=== PATIENT | male | born 1995 | race Caucasian/White ===

== ENCOUNTER 2018-09-21 20:20 | Emergency (ER) | payer BC ==
--- NOTE | 2018-09-21 20:32 | EDPHY ---
H & P Stated Complaint: ANXIETY , FEET AND HAND TINGELING, HEAVY STRESS - Personal History Current Tetanus/Diphtheria Vaccine: Yes Current Tetanus Diphtheria and Acellular Pertussis (TDAP): Yes - Medical/Surgical History Hx Asthma: No Hx Chronic Respiratory Disease: No Hx Diabetes: No Hx Cardiac Disease: No Hx Renal Disease: No Hx Cirrhosis: No Hx Alcoholism: No Hx HIV/AIDS: No Hx Splenectomy or Spleen Trauma: No Other PMH: DENIES - Social History Smoking Status: Never smoked Time Seen by Provider: 09/21/18 20:35 HPI/ROS: CHIEF COMPLAINT: "My chest was getting heavy, my heart was racing, my hands were tingling, I was breathing fast." HISTORY OF PRESENT ILLNESS: The patient is a 23 y/o male who complains of slowly resolving rapid heart rate, increased respiratory rate, and bilateral hands and feet tingling. Symptoms began around 16:30, almost 4 hours ago. He's experienced similar symptoms previously and says this is the 3rd or 4th episode. During prior episodes, symptoms resolved much faster on their own and he has not seen a medical provider for this before. He reports a lot of stress at school this semester and has plans with his parents to see a counselor upon his return home to [place] in 2 weeks. He continues to have mild tingling in both hands and his face upon assessment here. He denies recent illness, trauma, or other complaints. REVIEW OF SYSTEMS: A ten system review of systems was performed and is negative with the exception of the items mentioned in the HPI. Past medical history: Denies Past surgical history: Denies Family history: Noncontributory Social history: [employer] studying [employer]. From [place]. Nonsmoker. Social alcohol use. General Appearance: Alert. Vital signs reviewed. Blood pressure 152/75 at triage. Eyes: Pupils equal and round, no conjunctival injection, no discharge. Anicteric. ENT, Mouth: Mucous membranes are moist, no oropharyngeal erythema or edema. Neck: No lymphadenopathy, supple. Respiratory: Lungs are clear to auscultation; no wheezes, rales, or rhonchi. Cardiovascular: Regular rate and rhythm; no murmur, rub, or gallop. Gastrointestinal: Abdomen is soft and nontender, no masses or organomegaly. Skin: Warm and dry, no rashes on exposed skin, normal color. Back: Nontender to palpation over the thoracolumbar spine. No CVAT. Extremities: No lower extremity edema, no calf tenderness or swelling. Neurological: Alert and oriented. Moving all four extremities easily and equally. Facial expressions symmetric. Tongue midline. Strength is 5 over 5 bilaterally with testing of all major motor groups. Sensation is intact to light touch over all 4 extremities. Psychiatric: Normal affect. (April Whitehead) Constitutional: Initial Vital Signs Temperature (C) 36.4 C 09/21/18 20:23 Heart Rate 79 09/21/18 20:23 Respiratory Rate 18 09/21/18 20:23 Blood Pressure 152/75 H 09/21/18 20:23 O2 Sat (%) 100 09/21/18 20:23 O2 Delivery Mode Room Air Allergies/Adverse Reactions: cefdinir [From Omnicef] Allergy (Verified 09/21/18 20:25) Home Medications: Medication Instructions Recorded Montelukast Sodium [Singulair] 10 mg PO 09/21/18 Medical Decision Making ED Course/Re-evaluation: This is a healthy 23 y/o male who presents with a 4-hour history of resolving bilateral extremity tingling and lightheadedness this evening. He reports he is under heavy stress at school currently and has had similar symptoms previously that resolved much quicker. Neuro exam is normal. Presentation is consistent with panic attack. Plan for 1mg PO Ativan and observation for resolution of symptoms. He decided to forego the Ativan and his symptoms did resolve. Is discharged home with a prepack of Ativan, dispense for. He is advised to follow up with PCP and/or counseling center at [facility]. His blood pressure was elevated both at triage and at discharge. He is advised to have this followed up with a primary care physician. (April Whitehead) Differential Diagnosis: I considered a differential diagnosis that includes but is not limited to panic attack, PTSD, depression, cardiac arrhythmia, effect of stimulants or other medication, asthma attack, PE, hyperthyroidism (April Whitehead) - Data Points Medications Given: Discontinued Medications Lorazepam (Ativan) 1 mg PO EDNOW ONE Stop: 09/21/18 20:42 Last Admin: 09/21/18 20:42 Dose: Not Given Lorazepam (Ativan) 1 mg PO EDNOW ONE Stop: 09/21/18 20:42 Last Admin: 09/21/18 20:42 Dose: 1 mg Lorazepam (Ativan 1 Mg Prepack#4) 1 btl TAKEIGORE EDNOW ONE Stop: 09/21/18 21:08 Last Admin: 09/21/18 21:18 Dose: 1 btl Departure - Departure Disposition: Home, Routine, Self-Care Clinical Impression: Panic attack Condition: Good Instructions: Panic Attack (ED) Additional Instructions: Follow up with counselor on campus this week. [facility] is a service offered through to students - [email or web address] Return for worsening of condition. Referrals: [facility] ,. [Clinic] - As per Instructions [facility],. [Clinic] - As per Instructions Report Scribed for: April Whitehead Report Scribed by: Marlene Proctor Date of Report: 09/21/18 Time of Report: 20:44 Physician Review and Approval Statement: 09/21/18 20:32 Portions of this note were transcribed by the medical assistant cardiology. I, Dr. April Whitehead, personally performed the history, physical exam, and medical decision- making; and confirmed the accuracy of the information in the transcribed note. ( April Whitehead)
[2018-09-21] MEDS ORDERED: LORazepam 1 MG TAB PO ONE ×2 (20:41)
[2018-09-21] MEDS ORDERED: LORAZEPAM 1 MG PREPACK#4 BTL TAKEHOME ONE (21:07)
[2018-09-21 21:21] VITALS: BP 153/84
== END 2018-09-21 21:21 | disposition home or self-care (01) ==
DX: F41.0 Panic disorder [episodic paroxysmal anxiety] (principal)